=== PATIENT | female | born 1990 ===

== ENCOUNTER 2018-04-10 18:42 | Emergency (ER) | payer SELFPAY ==
[2018-04-10] MEDS ORDERED: NACL 0.9% 1000 ML 1,000 ML IV ONE (19:00)
[2018-04-10 19:26] LABS: Basophils # (Auto) 0.1 K/mm3 (0.0-0.1); Basophils % (Auto) 0.6 % (0.0-1.8); Eosinophils % (Auto) 11.3 % (0.0-4.3); Hematocrit 40.8 % (30.3-42.9); Hemoglobin 13.6 gm/dl (10.1-14.3); Lymphocytes # (Auto) 4.1 K/mm3 (1.2-5.4); Lymphocytes % (Auto) 23.3 % (13.4-35.0); Mean Corpuscular HGB Conc 33 % (30-34); Mean Corpuscular Hemoglobin 28 pg (28-32); Mean Corpuscular Volume 84 fl (79-97); Monocytes # (Auto) 1.2 K/mm3 (0.0-0.8); Monocytes % (Auto) 6.8 % (0.0-7.3); Platelet Count 314 K/mm3 (140-440); Red Blood Count 4.88 M/mm3 (3.65-5.03); Red Cell Distribution Width 13.1 % (13.2-15.2)
[2018-04-10 19:31] LABS: Alanine Aminotransferase 19 units/L (7-56); Albumin 4.4 g/dL (3.9-5); BUN/Creatinine Ratio 18; Blood Urea Nitrogen 11 mg/dL (7-17); Calcium 9.2 mg/dL (8.4-10.2); Hemolysis Index 6
[2018-04-10 20:05] LABS: Bilirubin,Urine NEG (Negative); Blood,Urine NEG (Negative); Color,Urine Yellow (Yellow); Mucus,Urine FEW /HPF; Protein,Urine <15 mg/dL mg/dL (Negative); Urobilinogen,Urine < 2.0 mg/dL (<2.0); WBC,Urine < 1.0 /HPF (0.0-6.0)
--- NOTE | 2018-04-10 23:48 | Emergency Department Report ---
ED Abdominal Pain HPI - General Chief Complaint: Abdominal Pain Stated Complaint: ABD PAIN Time Seen by Provider: 04/10/18 23:31 Source: patient Mode of arrival: Ambulatory Limitations: Language Barrier - History of Present Illness Initial Comments: Mrs. Wynn is a 28 yo female with severe LLQ pain for 2 days. Gradual onset. Worse with walking. NO nausea/fever/diarrhea. No vaginal bleeding or discharge. Radiation to RLQ epigstrium LUQ Hungarian Line Online Communications Specialist #[id number] Complaint: abdominal pain Location: LLQ Radiation: RLQ, epigastric Severity: severe Severity scale (0 -10): 10 Quality: sharp Consistency: constant Worsens With: movement - Related Data Previous Rx's Medication Instructions Recorded Last Taken Type HYDROcodone/APAP 5-325 [[place] 1 each PO Q6HR PRN #10 tablet 04/11/18 Unknown Rx 5/325] Ibuprofen 800 mg PO Q6H PRN #15 tablet 04/11/18 Unknown Rx Allergies Allergy/AdvReac Type Severity Reaction Status Date / Time No Known Allergies Allergy Verified 04/10/18 18:56 ED Review of Systems ROS: Stated complaint: ABD PAIN Other details as noted in HPI Comment: All other systems reviewed and negative Constitutional: denies: fever, malaise Respiratory: denies: cough Cardiovascular: denies: chest pain ED Past Medical Hx - Past Medical History Previous Medical History?: No - Surgical History Additional Surgical History: Tubal ligation - Social History Smoking Status: Never Smoker Substance Use Type: None - Medications Home Medications: Home Medications Medication Instructions Recorded Confirmed Last Taken Type HYDROcodone/APAP 5-325 [[place] 1 each PO Q6HR PRN #10 tablet 04/11/18 Unknown Rx 5/325] Ibuprofen 800 mg PO Q6H PRN #15 tablet 04/11/18 Unknown Rx ED Physical Exam - General Limitations: Language Barrier, Other (language line cash applications specialist used) General appearance: alert, in no apparent distress - Head Head exam: Present: atraumatic, normocephalic - Eye Eye exam: Present: normal appearance - ENT ENT exam: Present: mucous membranes moist - Neck Neck exam: Present: normal inspection. Absent: tenderness, meningismus - Respiratory Respiratory exam: Present: normal lung sounds bilaterally. Absent: respiratory distress, wheezes, rales, rhonchi - Cardiovascular Cardiovascular Exam: Present: regular rate, normal rhythm, normal heart sounds. Absent: systolic murmur, diastolic murmur, rubs, gallop - GI/Abdominal GI/Abdominal exam: Present: soft, normal bowel sounds. Absent: distended, tenderness, guarding, rebound - Extremities Exam Extremities exam: Present: normal inspection - Back Exam Back exam: Present: normal inspection - Neurological Exam Neurological exam: Present: alert, oriented X3 - Psychiatric Psychiatric exam: Present: normal affect, normal mood - Skin Skin exam: Present: warm, dry, intact, normal color. Absent: rash ED Course Vital Signs 04/10/18 04/11/18 18:56 01:52 Temperature 98.1 F Pulse Rate 92 H Respiratory 16 18 Rate Blood Pressure 152/98 O2 Sat by Pulse 98 Oximetry ED Medical Decision Making - Lab Data Result diagrams: 04/10/18 19:03 04/10/18 19:03 Laboratory Results - last 24 hr 04/10/18 04/10/18 04/10/18 19:03 19:03 19:03 WBC 17.7 H RBC 4.88 Hgb 13.6 Hct 40.8 MCV 84 MCH 28 MCHC 33 RDW 13.1 L Plt Count 314 Lymph % (Auto) 23.3 [place] % (Auto) 6.8 Eos % (Auto) 11.3 H Baso % (Auto) 0.6 Lymph # 4.1 [place] # 1.2 H Eos # 2.0 H Baso # 0.1 Seg Neutrophils % 58.0 Seg Neutrophils # 10.3 H Sodium 140 Potassium 4.1 Chloride 100.9 Carbon Dioxide 25 Anion Gap 18 BUN 11 Creatinine 0.6 L Estimated GFR > 60 BUN/Creatinine Ratio 18 Glucose 96 Calcium 9.2 Total Bilirubin 0.30 AST 21 ALT 19 Alkaline Phosphatase 80 Total Protein 7.6 Albumin 4.4 Albumin/Globulin Ratio 1.4 HCG, Qual Negative Urine Color Urine Turbidity Urine pH Ur Specific [place] Urine Protein Urine Glucose (UA) Urine Ketones Urine Blood Urine Nitrite Urine Bilirubin Urine Urobilinogen Ur Leukocyte Esterase Urine WBC (Auto) Urine RBC (Auto) U Epithel Cells (Auto) Urine Mucus 04/10/18 19:31 WBC RBC Hgb Hct MCV MCH MCHC RDW Plt Count Lymph % (Auto) [place] % (Auto) Eos % (Auto) Baso % (Auto) Lymph # [place] # Eos # Baso # Seg Neutrophils % Seg Neutrophils # Sodium Potassium Chloride Carbon Dioxide Anion Gap BUN Creatinine Estimated GFR BUN/Creatinine Ratio Glucose Calcium Total Bilirubin AST ALT Alkaline Phosphatase Total Protein Albumin Albumin/Globulin Ratio HCG, Qual Urine Color Yellow Urine Turbidity Clear Urine pH 7.0 Ur Specific [place] 1.020 Urine Protein <15 mg/dl Urine Glucose (UA) Neg Urine Ketones Neg Urine Blood Neg Urine Nitrite Neg Urine Bilirubin Neg Urine Urobilinogen < 2.0 Ur Leukocyte Esterase Neg Urine WBC (Auto) < 1.0 Urine RBC (Auto) 6.0 U Epithel Cells (Auto) 2.0 Urine Mucus Few - Medical Decision Making DDX:Ovarian cyst, ovarian torsion, appendicitis ectopic Ovarian cyst confirmed on both US and CT. I used language line services to give lab and CT/US results to patient and family member bedside. Pain has subsided after medications. She verbalized understand of discharge instructions. rx: ibuprofen, norco Critical care attestation.: If time is entered above; I have spent that time in minutes in the direct care of this critically ill patient, excluding procedure time. ED Disposition Clinical Impression: Ovarian cyst, LLQ pain Disposition: TO HOME OR SELFCARE Is pt being admited?: No Does the pt Need Aspirin: No Condition: Stable Instructions: Ovarian Cyst (ED) Prescriptions: HYDROcodone/APAP 5-325 [[place] 5/325] 1 each PO Q6HR PRN #10 tablet PRN Reason: Pain Ibuprofen 800 mg PO Q6H PRN #15 tablet PRN Reason: Pain, Mild (1-3) Referrals: DAJA BRANNON MD [Staff Physician] - 3-5 Days Time of Disposition: 02:30 Print Language: CROATIAN
[2018-04-10] MEDS ORDERED: MORPHINE IV ONE (23:57)
[2018-04-10] MEDS ORDERED: ZOFRAN IV ONE (23:57)
[2018-04-10] MEDS ORDERED: TORADOL IV ONE (23:57)
--- NOTE | 2018-04-11 00:46 | Cat Scan Report ---
FINAL REPORT EXAM: CT ABDOMEN PELVIS W CON HISTORY: LLQ pain TECHNIQUE: Routine axial imaging was obtained of the abdomen and pelvis following the intravenous injection of iodinated contrast. Delayed imaging was obtained of the kidneys ureters and bladder. Sagittal and coronal reconstructions were reviewed. FINDINGS: The lung bases are clear. Pleural fluid is not seen. There is a small hiatal hernia. The liver, gallbladder, biliary tree, pancreas, spleen, and adrenal glands appear normal. The kidneys enhance normally. There is no evidence of hydronephrosis. The abdominal aorta is normal in caliber. The vascular structures enhance normally. The bowel loops are normal in caliber and course. The appendix is not enlarged. There is no evidence of free fluid or adenopathy. In the pelvis there is a left adnexal cyst measuring 2.5 cm in diameter. The uterus and bladder appear normal. The skeletal structures are well-maintained. IMPRESSION: 2.5 cm left ovarian cyst. No evidence of free fluid. No acute process in the abdomen and pelvis otherwise.
[2018-04-11] MEDS ORDERED: NACL 0.9% 1000 ML 1,000 ML ONE (01:44)
--- NOTE | 2018-04-11 02:01 | Ultrasound Report ---
FINAL REPORT EXAM: US PELVIC COMPLETE HISTORY: LLQ pain TECHNIQUE: Transabdominal imaging was obtained of the pelvis. FINDINGS: The uterus is anteverted measuring 9.1 cm x 3.2 cm x 4.6 cm. The endometrial thickness is 13.7 mm and is homogeneous. Free fluid is not seen. The right ovary is normal size contour and echotexture measuring 3.3 cm x 1.9 cm x 2.7 cm. There are benign follicles in right ovary. The left lobe measures 4.4 cm x 3.2 cm x 3.2 cm. Within the left ovary is a functional anechoic cyst measuring 2.4 cm in diameter along with benign follicles. IMPRESSION: Secretory endometrium which appears homogeneous. Benign anechoic functional cyst in left ovary measuring up to 2.4 cm in diameter No evidence of free fluid in the pelvis.
--- NOTE | 2018-04-11 02:05 | Ultrasound Report ---
FINAL REPORT EXAM: US TRANSVAGINAL HISTORY: LLQ pain TECHNIQUE: Transvaginal imaging was obtained of the pelvis. Doppler interrogation of the adnexa was performed. FINDINGS: The uterus is anteverted measuring 9.1 cm x 3.7 cm x 4.6 cm. The myometrium is homogeneous. The endometrial thickness is 13.7 mm. It is homogeneous. Free fluid is not seen. The right ovary is normal size contour blood flow and echotexture measuring 3.3 cm x 1.9 cm x 2.7 cm. There are benign-appearing follicles the right ovary. The left ovary measures 4.4 cm x 3.2 cm x 3.2 cm. There are benign-appearing follicles in left ovary with a dominant anechoic cyst measuring to 2.4 cm in diameter. The blood flow is normal to left ovary. IMPRESSION: Benign-appearing follicles both ovaries with a dominant 2.4 cm cyst in the left ovary. No evidence of ovarian torsion.
[2018-04-11] MEDS ORDERED: ZOFRAN ODT PO ONE (02:29)
[2018-04-11] MEDS ORDERED: NORCO 5/325 PO ONE (02:29)
[2018-04-11 04:34] VITALS: BP 146/76
== END 2018-04-11 02:40 | disposition home or self-care (01) ==
LOC: ED 18:42
DX: N83.202 Unspecified ovarian cyst, left side (principal); Z98.51 Tubal ligation status
CPT/HCPCS: 36415; 74177; 76830; 76856; 80053; 81001; 84703; 85025; 96361; 96374; 96375; 99284; J1885; J2270; J2405; J7030; Q9967

== ENCOUNTER 2018-05-09 10:40 | Emergency (ER) | payer OTHER ==
[2018-05-09] MEDS ORDERED: TORADOL IM ONE (11:07)
--- NOTE | 2018-05-09 11:09 | Emergency Department Report ---
Blank Doc - Documentation Documentation: Patient is a 28-year-old female who is presenting with over a month of left lower quadrant pain. Patient was diagnosed with a knee ovarian cyst one month ago. Patient has not followed up with PASTEURIZING MACHINE OPERATOR. Patient states the pains got worse. Patient denies any nausea vomiting diarrhea fevers chills this time. She does have some mild dizziness. Ultrasound OB retaken to rule out ovarian torsion urinalysis and test be ordered as well patient be reassessed.
--- NOTE | 2018-05-09 12:03 | Emergency Department Report ---
ED Abdominal Pain HPI - General Chief Complaint: Abdominal Pain Stated Complaint: BACK PAIN Time Seen by Provider: 05/09/18 11:04 Source: patient Mode of arrival: Ambulatory Limitations: Language Barrier - History of Present Illness Initial Comments: Senior Compensation Analyst present Patient is a 28-year-old female who is presenting with over a month of left lower quadrant pain. Patient was diagnosed with a ovarian cyst one month ago. Patient has not followed up with CEMENT TESTER ASSISTANT. Patient states the pains got worse. Patient denies any nausea vomiting diarrhea fevers chills this time. She does have some mild dizziness. Denies any urinary burning, frequency or urgency. Denies any back pain. She was seen here on 04/11/2018 on hydrocodone and motrin for left ovarian cyst.Patient denies any vaginal bleeding or discharge. Patient says the pain is 8 out of 10 left pelvic area that is crampy on and off. She says she took Motrin that was prescribed but is not helping. No alleviating or exacerbating factor. Last menstrual cycle was 04/24 and denies vaginal bleeding or discharge or concern for STD. MD Complaint: abdominal pain Onset/Timin -: month(s) Location: LLQ Radiation: back Severity: severe Severity scale (0 -10): 8 Quality: cramping, aching Improves With: nothing Worsens With: nothing Context: other (none and patient has a history of left ovarian cyst) Associated Symptoms: denies: nausea, vomiting, diarrhea, fever, chills, constipation, dysuria, hematemesis, hematochezia, melena, hematuria, anorexia, syncope Treatments Prior to Arrival: NSAIDs, prescription analgesics - Related Data LMP Date: 04/24/18 Previous Rx's Medication Instructions Recorded Last Taken Type HYDROcodone/APAP 5-325 [[place] 1 each PO Q6HR PRN #10 tablet 04/11/18 Unknown Rx 5/325] Ibuprofen 800 mg PO Q6H PRN #15 tablet 04/11/18 Unknown Rx Naproxen 500 mg PO Q12H PRN #12 tablet 05/09/18 Unknown Rx traMADol [Ultram 50 MG tab] 50 mg PO Q6HR PRN #20 tablet 05/09/18 Unknown Rx Allergies Allergy/AdvReac Type Severity Reaction Status Date / Time No Known Allergies Allergy Verified 04/10/18 18:56 ED Review of Systems ROS: Stated complaint: BACK PAIN Other details as noted in HPI Senior Compensation Analyst present. Patient speaks American and her speaks very little Yakut Constitutional: denies: chills, fever Eyes: denies: eye discharge ENT: denies: throat pain Respiratory: denies: cough, shortness of breath, SOB with exertion, SOB at rest , stridor, wheezing Cardiovascular: denies: chest pain, palpitations, dyspnea on exertion, edema, syncope, paroxysmal nocturnal dyspnea Gastrointestinal: abdominal pain. denies: nausea, vomiting, diarrhea, constipation, hematemesis, melena, hematochezia Genitourinary: denies: urgency, dysuria, frequency, hematuria, discharge, abnormal menses, dyspareunia Musculoskeletal: denies: back pain, joint swelling, arthralgia Skin: denies: rash, lesions Neurological: denies: headache, weakness, paresthesias, abnormal gait, vertigo ED Past Medical Hx - Past Medical History Previous Medical History?: Yes Additional medical history: Left ovarian cyst - Surgical History Past Surgical History?: Yes Additional Surgical History: Tubal ligation - Family History Family history: hypertension - Social History Smoking Status: Never Smoker Substance Use Type: None - Medications Home Medications: Home Medications Medication Instructions Recorded Confirmed Last Taken Type HYDROcodone/APAP 5-325 [[place] 1 each PO Q6HR PRN #10 tablet 04/11/18 Unknown Rx 5/325] Ibuprofen 800 mg PO Q6H PRN #15 tablet 04/11/18 Unknown Rx Naproxen 500 mg PO Q12H PRN #12 tablet 05/09/18 Unknown Rx traMADol [Ultram 50 MG tab] 50 mg PO Q6HR PRN #20 tablet 05/09/18 Unknown Rx ED Physical Exam - General Limitations: Language Barrier General appearance: alert, in no apparent distress - Head Head exam: Present: atraumatic, normocephalic, normal inspection - Eye Eye exam: Present: normal appearance, PERRL, EOMI Pupils: Present: normal accommodation - ENT ENT exam: Present: normal exam, normal orophraynx, mucous membranes moist, TM's normal bilaterally, normal external ear exam - Neck Neck exam: Present: normal inspection, full ROM. Absent: tenderness, lymphadenopathy - Respiratory Respiratory exam: Present: normal lung sounds bilaterally. Absent: respiratory distress, chest wall tenderness - Cardiovascular Cardiovascular Exam: Present: regular rate, normal rhythm, normal heart sounds. Absent: systolic murmur, diastolic murmur - GI/Abdominal GI/Abdominal exam: Present: soft, tenderness (left pelvic area of abdomen with no guarding or rebound), normal bowel sounds. Absent: distended, guarding, rebound, rigid, organomegaly, mass, bruit, pulsatile mass, hernia - Extremities Exam Extremities exam: Present: normal inspection, full ROM, normal capillary refill , other (No cce. + 2 pulses in all extremities, no neurovascular compromise). Absent: tenderness, pedal edema, joint swelling, calf tenderness - Back Exam Back exam: Present: normal inspection, full ROM, other (ambulates without any difficulties). Absent: tenderness, CVA tenderness (R), CVA tenderness (L), muscle spasm, paraspinal tenderness, vertebral tenderness, rash noted - Neurological Exam Neurological exam: Present: alert, oriented X3, normal gait, reflexes normal. Absent: motor sensory deficit - Psychiatric Psychiatric exam: Present: normal affect, normal mood - Skin Skin exam: Present: warm, dry, intact, normal color. Absent: rash ED Course Vital Signs 05/09/18 05/09/18 05/09/18 10:43 11:15 14:22 Temperature 98.5 F Pulse Rate 80 Respiratory 16 16 18 Rate Blood Pressure 142/92 Blood Pressure [Left] O2 Sat by Pulse 100 Oximetry 05/09/18 16:18 Temperature Pulse Rate 71 Respiratory 18 Rate Blood Pressure Blood Pressure 122/71 [Left] O2 Sat by Pulse 100 Oximetry - Reevaluation(s) Reevaluation #1: 05/09/18 15:53 Patient was given Toradol 30 mg IM and Tylenol 50 mg by mouth in the emergency room for lower pelvic pain which she reports to composer teaching artist helped her pain. ED Medical Decision Making - Lab Data Lab Results 05/09/18 Range/Units 11:30 Urine Color Yellow (Yellow) Urine Turbidity Clear (Clear) Urine pH 7.0 (5.0-7.0) Ur Specific [place] 1.016 (1.003-1.030) Urine Protein <15 mg/dl (Negative) mg/dL Urine Glucose (UA) Neg (Negative) mg/dL Urine Ketones Neg (Negative) mg/dL Urine Blood Neg (Negative) Urine Nitrite Neg (Negative) Urine Bilirubin Neg (Negative) Urine Urobilinogen < 2.0 (<2.0) mg/dL Ur Leukocyte Esterase Neg (Negative) Urine WBC (Auto) 1.0 (0.0-6.0) /HPF Urine RBC (Auto) 5.0 (0.0-6.0) /HPF U Epithel Cells (Auto) 13.0 (0-13.0) /HPF Urine HCG, Qual Negative (Negative) - Radiology Data Radiology results: report reviewed Patient which and vaginal child's abdominal ultrasound non-OB. Dictated by radiologist and report reviewed by myself. See report below. Patient with chronic left ovarian cyst which was seen on previous ultrasound on 04/24/2018 and was treated. Patient: SOPHIE RAO MR#: [id number] : 1990 Acct:[id number] Age/Sex: 28 / F ADM Date: 05/09/18 Loc: ED Attending Dr: Ordering Physician: AXEL OLIVARES MD Date of Service: 05/09/18 Procedure(s): US transvaginal Accession Number(s): [id number] cc: AXEL OLIVARES MD FINAL REPORT PROCEDURE: US TRANSVAGINAL and transabdominal TECHNIQUE: Real-time transabdominal sonography in multiple planes of the pelvis was performed. The pelvic structures, especially the ovaries were not optimally visualized. Transvaginal sonography was then performed to better evaluate the structures and/or abnormalities described below with image documentation. CPT 54523 and 47601 HISTORY: L pelvic pain COMPARISON: 04/11/2018 FINDINGS: UTERUS Size: 9.2 x 4.6 x 5.4 cm. Endometrial thickness: Endometrial fluid is present. Endometrium measures 7 millimeters in thickness Orientation: anteverted. Cervix: Normal. Fibroids/masses: None. RIGHT Ovary: 3.0 x 1.8 x 1.9 cm. Appearance: Normal. LEFT Ovary: 3.2 x 2.4 x 3.8 cm. Appearance: There is a 2.5 centimeter cystic structure abutting the left ovary, possibly related to an exophytic left ovarian cyst. Pelvic fluid: None. Other: There is a fluid-filled tubular structure in the left adnexa, possibly related to a hydrosalpinx. IMPRESSION: Fluid-filled tubular structure in the left adnexa, could be related to a hydrosalpinx or possibly fluid-filled bowel loops. 2.5 centimeter simple cystic structure adjacent to the left ovary could be related to an exophytic simple left ovarian cyst. Transcribed By: [facility] Dictated By: MECHELLE BETANCOURT M.D. Electronically Authenticated By: MECHELLE BETANCOURT M.D. Signed Date/Time: 05/09/181436 DD/ 36 TD/TT: 05/09/181436 Findings [facility] [address] [place] [address] Ultrasound Report Signed Patient: SOPHIE RAO MR#: [id number] : 1990 Acct:[id number] Age/Sex: 28 / F ADM Date: 04/10/18 Loc: ED Attending Dr: Ordering Physician: Ira Marr MD Date of Service: 04/10/18 Procedure(s): US transvaginal Accession Number(s): [id number] cc: Ira Marr MD FINAL REPORT EXAM: US TRANSVAGINAL HISTORY: LLQ pain TECHNIQUE: Transvaginal imaging was obtained of the pelvis. Doppler interrogation of the adnexa was performed. FINDINGS: The uterus is anteverted measuring 9.1 cm x 3.7 cm x 4.6 cm. The myometrium is homogeneous. The endometrial thickness is 13.7 mm. It is homogeneous. Free fluid is not seen. The right ovary is normal size contour blood flow and echotexture measuring 3.3 cm x 1.9 cm x 2.7 cm. There are benign-appearing follicles the right ovary. The left ovary measures 4.4 cm x 3.2 cm x 3.2 cm. There are benign-appearing follicles in left ovary with a dominant anechoic cyst measuring to 2.4 cm in diameter. The blood flow is normal to left ovary. IMPRESSION: Benign-appearing follicles both ovaries with a dominant 2.4 cm cyst in the left ovary. No evidence of ovarian torsion. Transcribed By: [facility] Dictated By: ROD BIRCH MD Electronically Authenticated By: ROD BIRCH MD Signed Date/Time: 04/11/18201 DD/ 1 TD/TT: 04/11/18201 - Medical Decision Making This a 28-year-old female patient was brought to the hospital by her she does not speak Yakut. Senior Compensation Analyst service used to communicate with the patient patient's complaint of pelvic pain and she has been seen here in the past for pelvic pain and had ultrasound which showed that she had ovarian cysts. She is here to be evaluated again. Patient was screened by Dr. Olivares and orders place. She had urinalysis which was negative for infection and test was negative. Patient had transient abdominal and transvaginal ultrasound which showed Benign-appearing follicles both ovaries with a dominant 2.4 cm cyst in the left ovary. No evidence of ovarian torsion. Urinalysis, test and ultrasound report explained to patient in American via gauntlet pairer in detail. Her is upset because he wants the patient to be admitted and have surgery for ovarian cysts. Via gauntlet pairer I explained to patient and has been that ovarian cysts is very common in a woman of age and this is not an emergency and is not considered to be something that needs emergency surgery. He was seen here before and was referred to CEMENT TESTER ASSISTANT at some outside [facility] and he did not follow up with her. Via composer teaching artist I expressed to him that the patient needs to be evaluated by an CEMENT TESTER ASSISTANT and CEMENT TESTER ASSISTANT needs to make the decision on the best treatment for the patient. Patient is nontoxic in appearance and does not look sick. She does not have acute abdomen. Her back exam is normal. She received Toradol and tramadol that was ordered by Dr. Olivares for pelvic pain and it relieved her pain. They agree that they will follow-up with outside Medical Center with Dr. Iron Carranza as they were referred to him in the past. Assessment/plan Ovarian cyst bilaterally left greater than right.-Patient given Ultram 50 mg by mouth and Toradol 30 mg IM in the emergency room which relieved her pain. Pelvic pain-urinalysis negative for infection and test is negative. Patient given another referral to see Dr. Iron Carranza CEMENT TESTER ASSISTANT and they were given written information in American regarding in her diagnosis and also written instruction in American and additional discharge instruction. Patient discharged home with her in stable condition with prescription for naproxen and tramadol. Her vital signs are stable she is afebrile and her pains control. She knows that she needs to follow up with Dr. Iron Carranza and they voice understanding inferior composer teaching artist. - Differential Diagnosis ovarian torsion, ovarian cyst, uterine fibroid, , UTI Critical care attestation.: If time is entered above; I have spent that time in minutes in the direct care of this critically ill patient, excluding procedure time. ED Disposition Clinical Impression: Cyst, ovary, follicular, Pelvic pain Disposition: TO HOME OR SELFCARE Is pt being admited?: No Does the pt Need Aspirin: No Condition: Stable Instructions: Ovarian Cyst (ED), Abdominal Pain (ED) Additional Instructions: Please follow up with Dr. Iron Carranza CEMENT TESTER ASSISTANT at some [facility]. Please call tomorrow to schedule appointment. He can also follow up with [facility] for primary care Stop taking Motrin and he can start taking naproxen for pelvic pain Take Ultram for severe pain, please not drive or operate heavy machinery if he is taking this medication Por favor, isis un seguimiento con el Dr. Iron Carranza OB / MOLD INSPECTOR en algn [facility]. Por favor llame a maana para programar vikki usman. Tambin puede hacer un seguimiento con [facility] para atencin primaria Deje de mary lou Motrin y l puede comenzar a mary lou naproxeno para el dolor plvico Staley Ultram para el dolor lanette, no conduzca ni maneje maquinaria pesada si est tomando shirley medicamento Prescriptions: Naproxen 500 mg PO Q12H PRN #12 tablet PRN Reason: pelvic pain, mild traMADol [Ultram 50 MG tab] 50 mg PO Q6HR PRN #20 tablet PRN Reason: moderate to severe pain Referrals: [facility] [Outside] - 3-5 Days IRON CARRANZA MD [Staff Physician] - 05/11/18 (You will need to call Dr. Carranza's office tomorrow to schedule an appointment for follow-up ovarian cyst with pelvic pain.) Forms: Accompanied Note Print Language: MONGOLIAN
[2018-05-09] MEDS ORDERED: ULTRAM PO ONE (13:03)
[2018-05-09 13:24] LABS: Bilirubin,Urine NEG (Negative); Blood,Urine NEG (Negative); Color,Urine Yellow (Yellow); Protein,Urine <15 mg/dL mg/dL (Negative); Urobilinogen,Urine < 2.0 mg/dL (<2.0)
[2018-05-09 13:25] LABS: HCG Qualitative,Urine Negative (Negative)
--- NOTE | 2018-05-09 14:43 | Ultrasound Report ---
FINAL REPORT PROCEDURE: US TRANSVAGINAL and transabdominal TECHNIQUE: Real-time transabdominal sonography in multiple planes of the pelvis was performed. The pelvic structures, especially the ovaries were not optimally visualized. Transvaginal sonography was then performed to better evaluate the structures and/or abnormalities described below with image documentation. CPT 56782 and 97114 HISTORY: L pelvic pain COMPARISON: 04/11/2018 FINDINGS: UTERUS Size: 9.2 x 4.6 x 5.4 cm. Endometrial thickness: Endometrial fluid is present. Endometrium measures 7 millimeters in thickness Orientation: anteverted. Cervix: Normal. Fibroids/masses: None. RIGHT Ovary: 3.0 x 1.8 x 1.9 cm. Appearance: Normal. LEFT Ovary: 3.2 x 2.4 x 3.8 cm. Appearance: There is a 2.5 centimeter cystic structure abutting the left ovary, possibly related to an exophytic left ovarian cyst. Pelvic fluid: None. Other: There is a fluid-filled tubular structure in the left adnexa, possibly related to a hydrosalpinx. IMPRESSION: Fluid-filled tubular structure in the left adnexa, could be related to a hydrosalpinx or possibly fluid-filled bowel loops. 2.5 centimeter simple cystic structure adjacent to the left ovary could be related to an exophytic simple left ovarian cyst.
--- NOTE | 2018-05-09 14:44 | Ultrasound Report ---
FINAL REPORT PROCEDURE: US TRANSVAGINAL and transabdominal TECHNIQUE: Real-time transabdominal sonography in multiple planes of the pelvis was performed. The pelvic structures, especially the ovaries were not optimally visualized. Transvaginal sonography was then performed to better evaluate the structures and/or abnormalities described below with image documentation. CPT 15847 and [id number] HISTORY: L pelvic pain COMPARISON: 04/11/2018 FINDINGS: UTERUS Size: 9.2 x 4.6 x 5.4 cm. Endometrial thickness: Endometrial fluid is present. Endometrium measures 7 millimeters in thickness Orientation: anteverted. Cervix: Normal. Fibroids/masses: None. RIGHT Ovary: 3.0 x 1.8 x 1.9 cm. Appearance: Normal. LEFT Ovary: 3.2 x 2.4 x 3.8 cm. Appearance: There is a 2.5 centimeter cystic structure abutting the left ovary, possibly related to an exophytic left ovarian cyst. Pelvic fluid: None. Other: There is a fluid-filled tubular structure in the left adnexa, possibly related to a hydrosalpinx. IMPRESSION: Fluid-filled tubular structure in the left adnexa, could be related to a hydrosalpinx or possibly fluid-filled bowel loops. 2.5 centimeter simple cystic structure adjacent to the left ovary could be related to an exophytic simple left ovarian cyst. PROCEDURE: TECHNIQUE: HISTORY: COMPARISON: FINDINGS: IMPRESSION:
[2018-05-09 16:19] VITALS: BP 122/71
== END 2018-05-09 16:21 | disposition home or self-care (01) ==
LOC: ED 10:40
DX: N83.02 Follicular cyst of left ovary (principal); R42 Dizziness and giddiness; Z98.51 Tubal ligation status
CPT/HCPCS: 76830; 76856; 81001; 81025; 96372; 99284; J1885